=== PATIENT | female | born 1950 | race Caucasian/White ===

== ENCOUNTER 2021-06-23 14:07 | Emergency (ER) | payer MEDICARE, OTHER ==
[~2021-06-23] VITALS: Ht 160 cm; Wt 54.4 kg
[2021-06-23] MEDS ORDERED: HYDR200T4 PO (14:14)
[2021-06-23] MEDS ORDERED: PRAV20TA4 PO (14:14)
[2021-06-23] MEDS ORDERED: METO25TA4 PO (14:14)
[2021-06-23] MEDS ORDERED: DICY10CA37 PO (14:14)
[2021-06-23 15:28] LABS: BASOPHILS % (AUTO) 0.4 % (0.0-2.0); EOSINOPHILS % (AUTO) 0.5 % (0.0-6.0); HEMATOCRIT 39 % (33-45); HEMOGLOBIN 13.7 g/dL (11.5-14.8); LYMPHOCYTES # (AUTO) 1.1 K/uL (0.8-4.8); LYMPHOCYTES % (AUTO) 14.5 % (20.0-44.0); MEAN CORPUSCULAR HGB CONC 35 g/dl (31.0-36.0); MEAN CORPUSCULAR VOLUME 88 fL (82-100); MONOCYTES # (AUTO) 0.5 K/uL (0.1-1.30); NEUTROPHILS # (AUTO) 6.1 K/uL (1.8-8.9); NEUTROPHILS % (AUTO) 78.6 % (43.0-81.0); PLATELET COUNT (AUTO) 189 K/uL (150-450); RED BLOOD CELL COUNT(AUTO) 4.45 MIL/uL (4.0-5.2); WHITE BLOOD COUNT (AUTO) 7.8 K/uL (4.3-11.0)
[2021-06-23 15:33] LABS: CALCIUM, SERUM 8.5 mg/dL (8.5-10.1); CARBON DIOXIDE 28 mmol/L (21-32); CHLORIDE 108 mmol/L (98-107); GLUCOSE 97 mg/dL (74-106); POTASSIUM 3.5 mmol/L (3.5-5.1); SODIUM SERUM 143 mmol/L (136-145); UREA NITROGEN, BLOOD 23 mg/dL (7-18)
[2021-06-23 15:39] LABS: ALANINE AMINOTRANSFERASE 42 U/L (12-78); ALKALINE PHOSPHATASE 51 U/L (46-116); ASPARTATE AMINOTRANSFERASE 51 U/L (15-37); BILIRUBIN,DIRECT 0.1 mg/dL (0.0-0.2); BILIRUBIN,TOTAL 0.4 mg/dL (0.2-1.0); TOTAL PROTEIN, SERUM 7.2 g/dL (6.4-8.2)
[2021-06-23] MEDS ORDERED: IOHEXOL-300 100 ML VIAL IV ONE (15:49)
[2021-06-23] MEDS ORDERED: IV NS 0.9% 250 ML IV ONE (15:49)
[2021-06-23] MEDS ORDERED: hydrALAZINE HCL 25 MG TABLET PO ONE (20:00)
[2021-06-24 01:30] VITALS: BP 170/90
== END 2021-06-24 01:33 | disposition short-term general hospital (02) ==
LOC: ER 14:45
DX: S22.20XA Unspecified fracture of sternum, initial encounter for closed fracture (principal); S22.41XA Multiple fractures of ribs, right side, initial encounter for closed fracture; S27.892A Contusion of other specified intrathoracic organs, initial encounter; V49.49XA Driver injured in collision with other motor vehicles in traffic accident, initial encounter; Y92.414 Local residential or business street as the place of occurrence of the external cause; I10 Essential (primary) hypertension; R94.31 Abnormal electrocardiogram [ECG] [EKG]; Z20.822 Contact with and (suspected) exposure to COVID-19
CPT/HCPCS: 36415; 71045; 71260; 80048; 80076; 84484 ×2; 85025; 85610; 85730; 87081; 87426; 93005 ×2; 99291; C9803; J7050; Q9967

== ENCOUNTER 2023-12-20 11:35 | Emergency (ER) | payer MEDICARE ==
[~2023-12-20] VITALS: Ht 170.2 cm; Wt 48.5 kg
[~2023-12-20 11:35] MED LIST: DICY10CA37 PO; HYDR200T4 PO; METO25TA4 PO; PRAV20TA4 PO
[2023-12-20 12:36] LABS: APPEARANCE,URINE CLEAR (CLEAR); BILIRUBIN,URINE NEGATIVE (NEGATIVE); BLOOD, URINE 1+ Ery/uL (NEGATIVE); COLOR,URINE YELLOW (YELLOW); KETONES,URINE NEGATIVE (NEGATIVE); LEUKOCYTE ESTERASE ,URINE TRACE (NEGATIVE); NITRITE, URINE NEGATIVE (NEGATIVE); PROTEIN,URINE NEGATIVE (NEGATIVE); UGLUCOSE NEGATIVE (NEGATIVE); UROBILINOGEN,URINE 0.2 EU/dL (0.2)
[2023-12-20 12:49] VITALS: BP 168/91; TEMP 98.2; O2SAT 100
[2023-12-20 12:51] LABS: ADD URINE CULTURE NO; BACTERIA,URINE Rare /HPF (None Seen); SQUAMOUS EPITHELIAL CELL,UR Few /HPF (None Seen)
== END 2023-12-20 12:52 | disposition home or self-care (01) ==
LOC: ER 11:37
DX: F03.918 Unspecified dementia, unspecified severity, with other behavioral disturbance (principal); Z91.83 Wandering in diseases classified elsewhere; Z88.8 Allergy status to other drugs, medicaments and biological substances
CPT/HCPCS: 81001